=== PATIENT | male | born 1965 | race African-American/Black ===

== ENCOUNTER 2018-11-21 12:56 | Inpatient (IN) | payer OTHER ==
[2018-11-21 14:57] VITALS: BMI 25.1
--- NOTE | 2018-11-21 15:29 | HP ---
CIWA Score Nausea/Vomitin Muscle Tremors: 2 Anxiety: 3 Agitation: 2 Paroxysmal Sweats: 1-Minimal Palms Moist Orientation: 0-Oriented Tacttile Disturbances: 1-Very Mild Itch/Numbness Auditory Disturbances: 1-Very Mild Visual Disturbances: 0-None Headache: 2-Mild CIWA-Ar Total Score: 14 - Admission Criteria OASAS Guidelines: Admission for Medically Managed Detox: Requires at least one of the followin. CIWA greater than 12 2. Seizures within the past 24 hours 3. Delirium tremens within the past 24 hours 4. Hallucinations within the past 24 hours 5. Acute intervention needed for co occurring medical disorder 6. Acute intervention needed for co occurring psychiatric disorder 7. Severe withdrawal that cannot be handled at a lower level of care (continued vomiting, continued diarrhea, abnormal vital signs) requiring intravenous medication and/or fluids 8. Admission ROS S - HPI Chief Complaint: i need help to stop drinking alcohol,cocaine and marijuana Allergies/Adverse Reactions: Allergies Allergy/AdvReac Type Severity Reaction Status Date / Time No Known Allergies Allergy Verified 11/21/18 14:49 History of Present Illness: this 52 years old male with alcohol,cocaine and marijuana dependence seeking detox,withdrawal symptom seen in [place] last night multiple admissions in detox,last detox 2016 [facility] but keep relapsing nicotine dependence 1/2 pack per day,requesting nicotine gum history of schizophrenia and depression history of seizure on dilantin 300 mgs po daily,last medicated 11/10/18 ,laast seizure 3 months ago Exam Limitations: No Limitations - Ebola screening Have you traveled outside of the country in the last 21 days: No Have you had contact with anyone from an Ebola affected area: No - Review of Systems Constitutional: Loss of Appetite, Malaise, Night Sweats, Changes in sleep EENT: reports: Nose Congestion Respiratory: reports: No Symptoms reported Cardiac: reports: No Symptoms Reported GI: reports: Diarrhea, Nausea, Vomiting : reports: No Symptoms Reported Musculoskeletal: reports: Back Pain, Muscle Pain Integumentary: reports: Dryness Neuro: reports: Headache, Tremors Endocrine: reports: No Symptoms Reported Hematology: reports: No Symptoms Reported Psychiatric: reports: No Sypmtoms Reported, Judgement Intact, Mood/Affect Appropiate, Orientated x3 (schizophrenia) Other Systems: Reviewed and Negative Patient History - Patient Medical History Hx Anemia: No Hx Asthma: No Hx Chronic Obstructive Pulmonary Disease (COPD): No Hx Cancer: No Hx Cardiac Disorders: No Hx Congestive Heart Failure: No Hx Hypertension: No Hx Hypercholesterolemia: No Hx Pacemaker: No HX Cerebrovascular Accident: No Hx Seizures: Yes (last 08/15) Hx Dementia: No Hx Diabetes: No Hx Gastrointestinal Disorders: No Hx Liver Disease: No Hx Genitourinary Disorders: No Hx Sexually Transmitted Disorders: No Hx Renal Disease (ESRD): No Hx Thyroid Disease: No Hx Human Immunodeficiency Virus (HIV): No (last 05/14 negative) Hx Hepatitis C: No Hx Depression: Yes Hx Suicide Attempt: No Hx Bipolar Disorder: No Hx Schizophrenia: Yes Other Medical History: no suicidal,no homicidal - Patient Surgical History Past Surgical History: No - PPD History Previous Implant?: Yes Documented Results: Negative w/o proof Implanted On Prior [facility] Admission?: No PPD to be Administered?: Yes - Smoking Cessation Smoking history: Current every day smoker Have you smoked in the past 12 months: Yes Aproximately how many cigarettes per day: 10 Cigars Per Day: 0 Hx Chewing Tobacco Use: No Initiated information on smoking cessation: Yes 'Breaking Loose' booklet given: 11/21/18 - Substance & Tx. History Hx Alcohol Use: Yes Hx Substance Use: Yes Substance Use Type: Alcohol, Cocaine, Marijuana Hx Substance Use Treatment: Yes (2017 at [facility]) - Substances abused Alcohol Substance route: Oral Frequency: Daily Amount used: 3/6packs of 12 ozs Age of first use: 20 Date of last use: 11/20/18 Crack Substance route: Smoking Frequency: Daily Amount used: $30 Age of first use: 34 Date of last use: 11/20/18 Cocaine Substance route: Smoking Frequency: 1-2 times per week Amount used: 30$ Age of first use: 34 Date of last use: 11/20/18 Family Disease History - Family Disease History Family History: Denies Admission Physical Exam S - Vital Signs Vital Signs: Vital Signs - 24 hr 11/21/18 14:49 Temperature 99.3 F Pulse Rate 73 Respiratory 18 Rate Blood Pressure 118/77 - Physical General Appearance: Yes: Moderate Distress, Tremorous, Irritable, Sweating, Anxious HEENTM: Yes: Normal ENT Inspection, Pharynx Normal Respiratory: Yes: Within Normal Limits, Lungs Clear, Normal Breath Sounds Neck: Yes: Within Normal Limits, Supple, Trachea in good position Breast: Yes: Within Normal Limits Cardiology: Yes: Within Normal Limits, Regular Rhythm, Regular Rate, S1, S2 Abdominal: Yes: Within Normal Limits, Normal Bowel Sounds, Non Tender, Flat, Soft Genitourinary: Yes: Within Normal Limits Back: Yes: Muscle Spasm Extremities: Yes: Tremors Neurological: Yes: legal executive assistant II-XII NML intact, Fully Oriented, Alert, Motor Strength 5/5 Integumentary: Yes: Dry Lymphatic: Yes: Within Normal Limits - Diagnostic (1) Alcohol dependence with uncomplicated withdrawal Current Visit: Yes Status: Acute (2) Cannabis dependence Current Visit: Yes Status: Acute (3) Cocaine abuse Current Visit: Yes Status: Acute (4) Seizure Current Visit: Yes Status: Acute (5) Syncope Current Visit: Yes Status: Acute (6) Schizophrenia Current Visit: Yes Status: Acute (7) Depression Current Visit: Yes Status: Acute Cleared for Admission S - Detox or Rehab [facility] Level of Care: Medically Managed Detox Regimen/Protocol: Librium Breathalyzer - Breathalyzer Breathalyzer: 0 Urine Drug Screen - Test Device Lot number: [id number] Expiration date: 06/26/20 - Control Is test valid?: Yes - Results Drug screen NEGATIVE: No Urine drug screen results: THC-Marijuana, VIVIAN-Cocaine, BAR-Barbiturates Inpatient Rehab Admission - Rehab Decision to Admit Inpatient rehab admission?: No
[2018-11-21] MEDS ORDERED: chlordiazePOXIDE HCL 25 MG CAPSULE PO PRN (15:40)
[2018-11-21] MEDS ORDERED: METHOCARBAMOL 500 MG TABLET PO PRN (15:40)
[2018-11-21] MEDS ORDERED: NICOTINE POLACRILEX 2 MG GUM BUC PRN (15:40)
[2018-11-21] MEDS ORDERED: IBUPROFEN 400 MG TABLET (FP) PO PRN (15:40)
[2018-11-21] MEDS ORDERED: MENTHOL/PHENOL 1 EACH UD MM PRN (15:40)
[2018-11-21] MEDS ORDERED: ACETAMINOPHEN 325 MG TABLET (FP) PO PRN ×2 (15:40)
[2018-11-21] MEDS ORDERED: MELATONIN 5 MG TABLETS PO PRN (15:40)
[2018-11-21] MEDS ORDERED: BISMUTH SUBSALICYLATE 524 MG/30 ML UD PO PRN (15:40)
[2018-11-21] MEDS ORDERED: hydrOXYzine PAMOATE 25 MG CAPSULE (FP) PO PRN (15:40)
[2018-11-21] MEDS ORDERED: MAG HYDROX/AL HYDROX/SIMETH 30 ML UNIT-DOSE CUP PO PRN (15:40)
[2018-11-21] MEDS ORDERED: MAGNESIUM CITRATE 300 ML BOTTLE PO PRN (15:40)
[2018-11-21] MEDS ORDERED: MAGNESIUM HYDROX 2400MG/30ML ORAL SUSPENSION 30 ML CUP PO PRN (15:40)
[2018-11-21] MEDS: PHENYTOIN NA EXTENDED 100 MG CAPSULE (FP) PO SCH (18:42)
[2018-11-21] MEDS: THIAMINE HCL 100 MG TABLET (FP) PO SCH (22:22)
[2018-11-21] MEDS: chlordiazePOXIDE HCL 25 MG CAPSULE PO SCH (22:22)
[2018-11-22] MEDS: chlordiazePOXIDE HCL 25 MG CAPSULE PO SCH ×4 (05:40→22:03)
[2018-11-22] MEDS: PRENATAL VITAMINS W/ FOLIC ACID TABLET (FP) PO SCH (10:22)
[2018-11-22] MEDS: PHENYTOIN NA EXTENDED 100 MG CAPSULE (FP) PO SCH (10:22)
[2018-11-22 10:45] LABS: HEMATOCRIT 41.6 % (35.4-49); HEMOGLOBIN 13.6 GM/dL (11.7-16.9); MCH 29.7 pg (25.7-33.7); MCHC 32.7 g/dl (32.0-35.9); MEAN CELL VOLUME 90.7 fl (80-96); MEAN PLT VOLUME 10.3 fl (7.5-11.1); PLATELET COUNT 111 K/MM3 (134-434); RBC 4.58 M/mm3 (4.00-5.60); RDW 13.7 % (11.9-15.9); WHITE BLOOD COUNT 2.8 K/mm3 (4.0-10.0)
[2018-11-22 11:04] LABS: ALBUMIN 3.4 g/dl (3.4-5.0); ALK PHOS 114 U/L (45-117); ANION GAP 6 MMOL/L (8-16); BILIRUBIN,TOTAL 0.6 mg/dL (0.2-1); BLOOD UREA NITROGEN 8 mg/dL (7-18); CALCIUM 8.7 mg/dL (8.5-10.1); CHLORIDE 105 mmol/L (98-107); CO2 29 mmol/L (21-32); CREATININE 0.8 mg/dL (0.55-1.3); GLUCOSE,RANDOM 88 mg/dL (74-106); POTASSIUM 3.8 mmol/L (3.5-5.1); SGOT/AST 58 U/L (15-37); SGPT/ALT 61 U/L (13-61); SODIUM 140 mmol/L (136-145); TOT PROT 7.3 g/dl (6.4-8.2)
--- NOTE | 2018-11-22 11:50 | CONSULT ---
[facility] Consult - Data Date of interview: 11/22/18 Admission source: [facility] as a tranfer from [facility] Identifying data: Patient is a 52 y/o male father of one unemployed, homeless, has no support system Substance Abuse History: Patient had a prior Detox treatment @ [facility] 4 years ago which has been succssful. He has been doing well until he relapsed 2 weeks ago drinking alcohol daily, smoking cocaine and marijuana. He smokes cigarettes one pack /day. Triggering factors, job loss, family conflict , he used to reside with his sister. He has been drinking daily and using cocaine. Medical History: History of seizure disorder controlled with Dilantin. Last seizure episode 2 month ago Psychiatric History: Patient reported 4 prior psychiatric hospitalizations @ [facility] and [facility], his most recent psych hospitalization was @ [facility] 2 years ago, he has not been compliant with his after care treatment. Currently feels sad, and anxious. Past medicated with Risperdal and another medication( could not recall the name ). he denies psychosis, suicidal or homicidal ideation, denies ansiety, feels mildly depressed , no insomnia. Physical/Sexual Abuse/Trauma History: denied Mental Status Exam - Mental Status Exam Alert and Oriented to: Place, Person Cognitive Function: Good Patient Appearance: Unkempt Mood: Euthymic Affect: Appropriate Patient Behavior: Appropriate, Cooperative Speech Pattern: Clear Voice Loudness: Normal Thought Process: Intact Thought Disorder: Not Present Hallucinations: Denies Suicidal Ideation: Denies Homicidal Ideation: Denies Insight/Judgement: Poor Sleep: Well Appetite: Good Muscle strength/Tone: Normal Gait/Station: Normal Psychiatric Findings - Problem List ([place] 1, 2,3) (1) Schizoaffective disorder with good prognostic features Current Visit: Yes Status: Acute (2) Alcohol dependence with uncomplicated withdrawal Current Visit: Yes Status: Acute (3) Cannabis dependence Current Visit: Yes Status: Acute (4) Cocaine abuse Current Visit: Yes Status: Acute (5) Seizure Current Visit: Yes Status: Acute - Initial Treatment Plan Initial Treatment Plan: Continue detox treatment. Monitor response
--- NOTE | 2018-11-22 13:30 | PN ---
[facility] CIWA - CIWA Score Nausea/Vomitin-Mild Nausea/No Vomiting Muscle Tremors: 2 Anxiety: 2 Agitation: 2 Paroxysmal Sweats: 1-Minimal Palms Moist Orientation: 2-Disoriented Date<2 days Tacttile Disturbances: 0-None Auditory Disturbances: 0-None Visual Disturbances: 0-None Headache: 1-Very Mild CIWA-Ar Total Score: 11 S Progress Note (SOAP) Subjective: doing well with librium detox regimen feeling better today than yesterday Objective: 11/22/18 13:32 Vital Signs Temperature 97.0 F L 11/22/18 09:33 Pulse Rate 82 11/22/18 09:33 Respiratory Rate 18 11/22/18 09:33 Blood Pressure 125/73 11/22/18 09:33 O2 Sat by Pulse Oximetry (%) Laboratory Last Values WBC 2.8 K/mm3 (4.0-10.0) L 11/22/18 07:00 RBC 4.58 M/mm3 (4.00-5.60) 11/22/18 07:00 Hgb 13.6 GM/dL (11.7-16.9) 11/22/18 07:00 Hct 41.6 % (35.4-49) 11/22/18 07:00 MCV 90.7 fl (80-96) 11/22/18 07:00 MCH 29.7 pg (25.7-33.7) 11/22/18 07:00 MCHC 32.7 g/dl (32.0-35.9) 11/22/18 07:00 RDW 13.7 % (11.9-15.9) 11/22/18 07:00 Plt Count 111 K/MM3 (134-434) L 11/22/18 07:00 MPV 10.3 fl (7.5-11.1) 11/22/18 07:00 Sodium 140 mmol/L (136-145) 11/22/18 07:00 Potassium 3.8 mmol/L (3.5-5.1) 11/22/18 07:00 Chloride 105 mmol/L (98-107) 11/22/18 07:00 Carbon Dioxide 29 mmol/L (21-32) 11/22/18 07:00 Anion Gap 6 MMOL/L (8-16) L 11/22/18 07:00 BUN 8 mg/dL (7-18) 11/22/18 07:00 Creatinine 0.8 mg/dL (0.55-1.3) 11/22/18 07:00 Creat Clearance w eGFR 102.32 (>60) 11/22/18 07:00 Random Glucose 88 mg/dL (74-106) 11/22/18 07:00 Calcium 8.7 mg/dL (8.5-10.1) 11/22/18 07:00 Total Bilirubin 0.6 mg/dL (0.2-1) 11/22/18 07:00 AST 58 U/L (15-37) H 11/22/18 07:00 ALT 61 U/L (13-61) 11/22/18 07:00 Alkaline Phosphatase 114 U/L (45-117) 11/22/18 07:00 Total Protein 7.3 g/dl (6.4-8.2) 11/22/18 07:00 Albumin 3.4 g/dl (3.4-5.0) 11/22/18 07:00 Phenytoin 5.4 ug/ml (10.0-20.0) L 11/22/18 07:00 RPR Titer Nonreactive (NONREACTIVE) 11/22/18 07:00 HIV 1&2 Antibody Screen Negative 11/22/18 07:00 HIV P24 Antigen Negative 11/22/18 07:00 lab noted dilantin loading dose 600 mg x 1 11/22/18 13:33 Assessment: 11/22/18 13:34 alcohol withdrawal sx seizure Plan: continue alcohol detox 600 mg dilantin x 1
[2018-11-22] MEDS ORDERED: PHENYTOIN NA EXTENDED 100 MG CAPSULE (FP) PO ONE (13:35)
[2018-11-22] MEDS: THIAMINE HCL 100 MG TABLET (FP) PO SCH (22:03)
[2018-11-23] MEDS: chlordiazePOXIDE HCL 25 MG CAPSULE PO SCH ×3 (05:17→16:57)
[2018-11-23] MEDS: PRENATAL VITAMINS W/ FOLIC ACID TABLET (FP) PO SCH (10:13)
[2018-11-23] MEDS: PHENYTOIN NA EXTENDED 100 MG CAPSULE (FP) PO SCH (10:14)
--- NOTE | 2018-11-23 11:02 | EKG ---
Test Reason : Blood Pressure : / mmHG Vent. Rate : 068 BPM Atrial Rate : 068 BPM P-R Int : 164 ms QRS Dur : 082 ms QT Int : 442 ms P-R-T Axes : 077 -43 053 degrees QTc Int : 469 ms NORMAL SINUS RHYTHM LEFT AXIS DEVIATION SEPTAL INFARCT , AGE UNDETERMINED ABNORMAL ECG NO PREVIOUS ECGS AVAILABLE Confirmed by ROMA QUINTERO MD ([id number]) on 11/23/2018 11:01:52 AM Referred By: Confirmed By:ROMA QUINTERO MD
--- NOTE | 2018-11-23 12:18 | PN ---
[facility] CIWA - CIWA Score Nausea/Vomitin-Mild Nausea/No Vomiting Muscle Tremors: 2 Anxiety: 2 Agitation: 2 Paroxysmal Sweats: 1-Minimal Palms Moist Orientation: 0-Oriented Tacttile Disturbances: 0-None Auditory Disturbances: 0-None Visual Disturbances: 0-None Headache: 0-None Present CIWA-Ar Total Score: 8 S Progress Note (SOAP) Subjective: doing well with librium detox regimen ambulate on hallway social with peers Objective: 11/23/18 12:19 Vital Signs Temperature 97.2 F L 11/23/18 09:08 Pulse Rate 78 11/23/18 09:08 Respiratory Rate 18 11/23/18 09:08 Blood Pressure 122/87 11/23/18 09:08 O2 Sat by Pulse Oximetry (%) Laboratory Last Values WBC 2.8 K/mm3 (4.0-10.0) L 11/22/18 07:00 RBC 4.58 M/mm3 (4.00-5.60) 11/22/18 07:00 Hgb 13.6 GM/dL (11.7-16.9) 11/22/18 07:00 Hct 41.6 % (35.4-49) 11/22/18 07:00 MCV 90.7 fl (80-96) 11/22/18 07:00 MCH 29.7 pg (25.7-33.7) 11/22/18 07:00 MCHC 32.7 g/dl (32.0-35.9) 11/22/18 07:00 RDW 13.7 % (11.9-15.9) 11/22/18 07:00 Plt Count 111 K/MM3 (134-434) L 11/22/18 07:00 MPV 10.3 fl (7.5-11.1) 11/22/18 07:00 Sodium 140 mmol/L (136-145) 11/22/18 07:00 Potassium 3.8 mmol/L (3.5-5.1) 11/22/18 07:00 Chloride 105 mmol/L (98-107) 11/22/18 07:00 Carbon Dioxide 29 mmol/L (21-32) 11/22/18 07:00 Anion Gap 6 MMOL/L (8-16) L 11/22/18 07:00 BUN 8 mg/dL (7-18) 11/22/18 07:00 Creatinine 0.8 mg/dL (0.55-1.3) 11/22/18 07:00 Creat Clearance w eGFR 102.32 (>60) 11/22/18 07:00 Random Glucose 88 mg/dL (74-106) 11/22/18 07:00 Calcium 8.7 mg/dL (8.5-10.1) 11/22/18 07:00 Total Bilirubin 0.6 mg/dL (0.2-1) 11/22/18 07:00 AST 58 U/L (15-37) H 11/22/18 07:00 ALT 61 U/L (13-61) 11/22/18 07:00 Alkaline Phosphatase 114 U/L (45-117) 11/22/18 07:00 Total Protein 7.3 g/dl (6.4-8.2) 11/22/18 07:00 Albumin 3.4 g/dl (3.4-5.0) 11/22/18 07:00 Phenytoin 5.4 ug/ml (10.0-20.0) L 11/22/18 07:00 RPR Titer Nonreactive (NONREACTIVE) 11/22/18 07:00 HIV 1&2 Antibody Screen Negative 11/22/18 07:00 HIV P24 Antigen Negative 11/22/18 07:00 repeat cbc lab noted 11/23/18 12:21 Assessment: 11/23/18 12:21 withdrawal sx Plan: continue detox
[2018-11-23] MEDS: chlordiazePOXIDE HCL 10 MG CAPSULE PO SCH (22:36)
[2018-11-23] MEDS: THIAMINE HCL 100 MG TABLET (FP) PO SCH (22:36)
[2018-11-23] MEDS ORDERED: chlordiazePOXIDE HCL 10 MG CAPSULE PO PRN (23:00)
[2018-11-24] MEDS: chlordiazePOXIDE HCL 10 MG CAPSULE PO SCH ×2 (06:21→12:00)
[2018-11-24 06:26] VITALS: TEMP 96.6
[2018-11-24 09:18] VITALS: BP 142/94; PULSE 80
--- NOTE | 2018-11-24 09:21 | DS ---
[facility] Detox Discharge Summary Admission Date: 11/21/18 Discharge Date: 11/24/18 - History Present History: Alcohol Dependence Additional Comments: 53 years old male admitted on 11/21/18 for alcohol withdrawal stabilization feeling better today wants to go home to see his daughter and grand[place] came here to see him patient is alert no acute distress denies suicidal ideation aftercare "I have to go back to work" patient has supportive sister at home care for him encourage him not to drink Pertinent Past History: bring in medication list and lab report to aftercare appointment strong recommend the patient return to neurologist or primary care provider for dilantin level monitoring - Physical Exam Results Vital Signs: Vital Signs Temperature 96.6 F L 11/24/18 09:17 Pulse Rate 80 11/24/18 09:17 Respiratory Rate 20 11/24/18 09:17 Blood Pressure 142/94 11/24/18 09:17 O2 Sat by Pulse Oximetry (%) Pertinent Admission Physical Exam Findings: alcohol withdrawal sx Laboratory Last Values WBC 2.8 K/mm3 (4.0-10.0) L 11/24/18 07:00 RBC 4.40 M/mm3 (4.00-5.60) 11/24/18 07:00 Hgb 12.8 GM/dL (11.7-16.9) 11/24/18 07:00 Hct 39.7 % (35.4-49) 11/24/18 07:00 MCV 90.2 fl (80-96) 11/24/18 07:00 MCH 29.1 pg (25.7-33.7) 11/24/18 07:00 MCHC 32.2 g/dl (32.0-35.9) 11/24/18 07:00 RDW 13.7 % (11.9-15.9) 11/24/18 07:00 Plt Count 104 K/MM3 (134-434) L 11/24/18 07:00 MPV 10.2 fl (7.5-11.1) 11/24/18 07:00 Sodium 140 mmol/L (136-145) 11/22/18 07:00 Potassium 3.8 mmol/L (3.5-5.1) 11/22/18 07:00 Chloride 105 mmol/L (98-107) 11/22/18 07:00 Carbon Dioxide 29 mmol/L (21-32) 11/22/18 07:00 Anion Gap 6 MMOL/L (8-16) L 11/22/18 07:00 BUN 8 mg/dL (7-18) 11/22/18 07:00 Creatinine 0.8 mg/dL (0.55-1.3) 11/22/18 07:00 Creat Clearance w eGFR 102.32 (>60) 11/22/18 07:00 Random Glucose 88 mg/dL (74-106) 11/22/18 07:00 Calcium 8.7 mg/dL (8.5-10.1) 11/22/18 07:00 Total Bilirubin 0.6 mg/dL (0.2-1) 11/22/18 07:00 AST 58 U/L (15-37) H 11/22/18 07:00 ALT 61 U/L (13-61) 11/22/18 07:00 Alkaline Phosphatase 114 U/L (45-117) 11/22/18 07:00 Total Protein 7.3 g/dl (6.4-8.2) 11/22/18 07:00 Albumin 3.4 g/dl (3.4-5.0) 11/22/18 07:00 Phenytoin 12.3 ug/ml (10.0-20.0) 11/23/18 08:20 RPR Titer Nonreactive (NONREACTIVE) 11/22/18 07:00 HIV 1&2 Antibody Screen Negative 11/22/18 07:00 HIV P24 Antigen Negative 11/22/18 07:00 lab noted - Treatment Hospital Course: Detox Protocol Followed, Detoxed Safely, Responded well, Discharged Condition Good, Rehab Referral Accepted Patient has Accepted a Rehab Referral to: [facility] - Medication Discharge Medications: Ambulatory Orders Phenytoin Na Extended [Dilantin -] 100 mg PO TID #90 capsule 11/24/18 - Diagnosis (1) Alcohol dependence with uncomplicated withdrawal Status: Acute (2) Seizure Status: Chronic - AMA Did Patient Leave Against Medical Advice: No
[2018-11-24 09:57] LABS: HEMATOCRIT 39.7 % (35.4-49); HEMOGLOBIN 12.8 GM/dL (11.7-16.9); MCH 29.1 pg (25.7-33.7); MCHC 32.2 g/dl (32.0-35.9); MEAN CELL VOLUME 90.2 fl (80-96); MEAN PLT VOLUME 10.2 fl (7.5-11.1); PLATELET COUNT 104 K/MM3 (134-434); RDW 13.7 % (11.9-15.9); WHITE BLOOD COUNT 2.8 K/mm3 (4.0-10.0)
[2018-11-24] MEDS: PHENYTOIN NA EXTENDED 100 MG CAPSULE (FP) PO SCH (11:03)
[2018-11-24] MEDS: PRENATAL VITAMINS W/ FOLIC ACID TABLET (FP) PO SCH (11:03)
[2018-11-24] MEDS ORDERED: chlordiazePOXIDE HCL 10 MG CAPSULE PO SCH (23:00)
== END 2018-11-24 09:42 | disposition home or self-care (01) | DRG 774 ==
LOC: YASAS 12:56 → Y3N 16:49
PROVIDERS: ADMIT Surgery; ATTEND Surgery
PROC: HZ2ZZZZ Detoxification Services for Substance Abuse Treatment (ICD-10-PCS; principal; 2018-11-21)
DX: F10.230 Alcohol dependence with withdrawal, uncomplicated (principal); F14.20 Cocaine dependence, uncomplicated; F12.20 Cannabis dependence, uncomplicated; F25.9 Schizoaffective disorder, unspecified; F32.9 Major depressive disorder, single episode, unspecified; G40.909 Epilepsy, unspecified, not intractable, without status epilepticus
CPT/HCPCS: 36415; 80053; 80185; 85027; 86593; 87389; 93005; 93010

== ENCOUNTER 2019-01-07 12:24 | Inpatient (IN) | payer OTHER ==
[2019-01-07 19:36] VITALS: BMI 23.0
--- NOTE | 2019-01-07 20:22 | HP ---
"CIWA Score - Admission Criteria OASAS Guidelines: Admission for Medically Managed Detox: Requires at least one of the followin. CIWA greater than 12 2. Seizures within the past 24 hours 3. Delirium tremens within the past 24 hours 4. Hallucinations within the past 24 hours 5. Acute intervention needed for co occurring medical disorder 6. Acute intervention needed for co occurring psychiatric disorder 7. Severe withdrawal that cannot be handled at a lower level of care (continued vomiting, continued diarrhea, abnormal vital signs) requiring intravenous medication and/or fluids 8. Admission ROS [facility] Chief Complaint: Here for help. Allergies/Adverse Reactions: Allergies Allergy/AdvReac Type Severity Reaction Status Date / Time No Known Allergies Allergy Verified 01/07/19 19:23 History of Present Illness: 53 yom w/ hx alcohol use since age 21. Was using up to two - 16oz 6pks beer daily. Stopped use 3 weeks ago when began attending an out-patient program. Patient states relapsed yesterday (01/06). Was seen in [facility] over night and treated for alcohol intoxication on 01/06/13 and transferred to [facility] today. Based on patient's current history, will admit to rehab. Alcohol use since age 20. Cocaine use since age 34. Nicotine use since age 21. Smokes 2-3 cig/day PMHx: Seizure on Dilantin 300 mgs PO daily (Received at [facility]); EKG 11/21/18: NSR w/ Septal infarct undetermined age. States was having (R) sided chest pain 2 weeks unrelated to activity (was laying down) MHHx: Schizophrenia and Depression. Denies thoughts of harming self or others. ( States takes Lexapro and Resperidal - last took abpout 1 week ago) Search Terms: Angelina Hamm, 1965 Search Date: 01/07/2019 08:16:51 PM The Drug Utilization Report below displays all of the controlled substance prescriptions, if any, that your patient has filled in the last twelve months. The information displayed on this report is compiled from pharmacy submissions to the Department, and accurately reflects the information as submitted by the pharmacies. This report was requested by: Rosette Estrada | Reference #: [id number] There are no results for the search terms that you entered. Search Terms: Angelina Hamm, 1965 Search Date: 01/07/2019 08:28:54 PM States Searched: [place], [place], [place], [place], [place], [place], [place] The Drug Utilization Report below displays the controlled substance prescriptions, if any, that were dispensed in the indicated state(s). The information displayed on this report is compiled from requests submitted to other states' PMPs, and accurately reflects the information as returned by them. Blank lewis indicate data not provided by other state. This report was requested by: Rosette Estrada | Reference #: [id number] Exam Limitations: No Limitations - Ebola screening Have you traveled outside of the country in the last 21 days: No (N) Have you had contact with anyone from an Ebola affected area: No Have you been sick,other than usual withdrawal symptoms: No (Denies recent exposure to measles.) Do you have a fever: No - Review of Systems Constitutional: Changes in sleep (Difficulty falling asleep.) EENT: reports: No Symptoms Reported Respiratory: reports: No Symptoms reported Cardiac: reports: No Symptoms Reported GI: reports: No Symptoms Reported : reports: No Symptoms Reported Musculoskeletal: reports: Back Pain (Chronic back pain r/t recent fall.) Integumentary: reports: No Symptoms Reported Neuro: reports: Seizure (Last seizure 6 months ago.) Endocrine: reports: No Symptoms Reported Hematology: reports: No Symptoms Reported Psychiatric: reports: Judgement Intact, Mood/Affect Appropiate, Orientated x3, Anxious, Depressed Patient History - Patient Medical History Hx Anemia: No Hx Asthma: No Hx Chronic Obstructive Pulmonary Disease (COPD): No Hx Cancer: No Hx Cardiac Disorders: No Hx Congestive Heart Failure: No Hx Hypertension: No Hx Hypercholesterolemia: No Hx Pacemaker: No HX Cerebrovascular Accident: No Hx Seizures: Yes (last 08/15) Hx Dementia: No Hx Diabetes: No Hx Gastrointestinal Disorders: No Hx Liver Disease: No Hx Genitourinary Disorders: No Hx Sexually Transmitted Disorders: No Hx Renal Disease (ESRD): No Hx Thyroid Disease: No Hx Human Immunodeficiency Virus (HIV): No (last 05/14 negative) Hx Hepatitis C: No Hx Depression: Yes Hx Suicide Attempt: No Hx Bipolar Disorder: No Hx Schizophrenia: Yes - Patient Surgical History Past Surgical History: No - PPD History Previous Implant?: Yes Documented Results: Negative w/proof Implanted On Prior [facility] Admission?: Yes Date: 11/23/18 PPD to be Administered?: No - Smoking Cessation Smoking history: Current every day smoker Have you smoked in the past 12 months: Yes Aproximately how many cigarettes per day: 3 Cigars Per Day: 0 Hx Chewing Tobacco Use: No Initiated information on smoking cessation: Yes 'Breaking Loose' booklet given: 01/07/19 - Substance & Tx. History Hx Alcohol Use: Yes Substance Use Type: Alcohol, Cocaine Hx Substance Use Treatment: Yes (detox, rehab) - Substances abused Alcohol Substance route: Oral Frequency: 3-6 times per week Amount used: 2- 6packs of 12 ozs Age of first use: 20 Date of last use: 01/06/19 Crack Substance route: Smoking Frequency: Daily Amount used: $20 Age of first use: 34 Date of last use: 01/06/19 Cocaine Substance route: Smoking Frequency: 1-2 times per week Amount used: 30$ Age of first use: 34 Date of last use: 11/20/18 Admission Physical Exam [facility] - Vital Signs Vital Signs: Vital Signs - 24 hr 01/07/19 19:16 Temperature 99.0 F Pulse Rate 63 Respiratory 18 Rate Blood Pressure 137/79 - Physical General Appearance: Yes: Nourished, Anxious HEENTM: Yes: EOMI, Hearing grossly Normal, Normocephalic, Normal Voice, FELIPE, Pharynx Normal Respiratory: Yes: Lungs Clear, Normal Breath Sounds, No Respiratory Distress Neck: Yes: No masses,lesions,Nodules, Supple Breast: Yes: Breast Exam Deferred Cardiology: Yes: Regular Rhythm, Regular Rate (HR: 60), S1, S2 Abdominal: Yes: Non Tender, Flat, Soft, Increased Bowel Sounds Genitourinary: Yes: Within Normal Limits Back: Yes: Normal Inspection Musculoskeletal: Yes: full range of Motion, Gait Steady Extremities: Yes: Normal Capillary Refill, Normal Range of Motion, Non-Tender Neurological: Yes: program aide II-XII NML intact, Fully Oriented, Alert, Motor Strength 5/5, Normal Mood/Affect Integumentary: Yes: Normal Color, Dry (Decreased skin turgor), Warm Lymphatic: Yes: Within Normal Limits - Diagnostic (1) History of seizures Current Visit: Yes Status: Chronic (2) Alcohol use disorder, moderate, in early remission Current Visit: Yes Status: Acute (3) Cocaine use disorder, moderate, in early remission Current Visit: Yes Status: Acute (4) Nicotine abuse Current Visit: Yes Status: Chronic Cleared for Admission [facility] - Detox or Rehab Claeared for Rehab Admission: Yes Breathalyzer - Breathalyzer Breathalyzer: 0 Urine Drug Screen - Test Device Lot number: [id number] Expiration date: 09/24/20 - Control Is test valid?: Yes - Results Drug screen NEGATIVE: No Urine drug screen results: BAR-Barbiturates Inpatient Rehab Admission - Rehab Decision to Admit Inpatient rehab admission?: Yes - Initial Determination Are CD services needed?: Yes Free of communicable disease: Yes Not in need of hospitalization: Yes - Rehab Admission Criteria Previous failed treatment: Yes Poor recovery environment: Yes Comorbidities: Yes Lacks judgement: No Patient is meeting Inpatient Rehab admission criteria:: Yes"
[2019-01-07] MEDS ORDERED: MAGNESIUM CITRATE 300 ML BOTTLE PO PRN (20:51)
[2019-01-07] MEDS ORDERED: hydrOXYzine PAMOATE 50 MG CAPSULE (FP) PO PRN (20:51)
[2019-01-07] MEDS ORDERED: guaiFENesin 200 MG/10 ML 10 ML UNIT-DOSE CUPS PO PRN (20:51)
[2019-01-07] MEDS ORDERED: LOPERAMIDE HCL 2 MG CAPSULE PO PRN (20:51)
[2019-01-07] MEDS ORDERED: MAG HYDROX/AL HYDROX/SIMETH 30 ML UNIT-DOSE CUP PO PRN (20:51)
[2019-01-07] MEDS ORDERED: IBUPROFEN 400 MG TABLET (FP) PO PRN (20:51)
[2019-01-07] MEDS ORDERED: MENTHOL/PHENOL 1 EACH UD MM PRN (20:51)
[2019-01-07] MEDS ORDERED: P-EPHED 60MG/TRIPROLIDI 2.5MG TABLET PO PRN (20:51)
[2019-01-07] MEDS ORDERED: MAGNESIUM HYDROX 2400MG/30ML ORAL SUSPENSION 30 ML CUP PO PRN (20:51)
[2019-01-07] MEDS ORDERED: ACETAMINOPHEN 325 MG TABLET (FP) PO PRN (20:51)
[2019-01-07] MEDS: MELATONIN 5 MG TABLETS PO PRN (22:16)
[2019-01-07] MEDS: PHENYTOIN NA EXTENDED 100 MG CAPSULE (FP) PO SCH (22:16)
[2019-01-07] MEDS: THIAMINE HCL 100 MG TABLET (FP) PO SCH (22:16)
[2019-01-08] MEDS: PHENYTOIN NA EXTENDED 100 MG CAPSULE (FP) PO SCH ×3 (06:18→21:21)
--- NOTE | 2019-01-08 08:47 | CONSULT ---
[facility] Psychiatric Consult - Data Date of interview: 01/08/19 Admission source: [facility] Identifying data: Mr Hamm is a 53 years old single male, father of 2 daughters , unemployed receiving food stamp, homeless seeking rehab treatment for alcohol and cocaine Substance Abuse History: Reports history of alcohol and crack cocaine use. Refer to addiction counselor's summary for further information Medical History: Significant for seizure disorder and septal infarc on EKG. Smokes 3 cigarettes daily Psychiatric History: Patient is a poor and unreliable historian. He is unsure about onset of his mental illness. He initially told script writer that his first psychiatric contact was 5 years ago when he was admitted to [facility] for hearing voices. Then when asked if he ever attempted on his life, he responded that he tried to kill himself by overdose on pills 8 years ago and he was admitted to [facility]. Reports subsequent hospitalizations at [facility] and [facility]. He told script writer that his most recent admission was to [facility] 4 years ago. However when seen by Dr Hunter on 11/22/18 , he reported that his most recent admission was in 2017 to [facility]. Reports currently receiving outpatient psychiatric treatment at [facility] and he is prescribed Risperdal 2 mg/day and Lexapro 10 mg/day. At present, denies experiencing psychotic symptoms, S/H ideations. However, reports feeling mildly depressed and sleeping poorly. Physical/Sexual Abuse/Trauma History: Denies history of emotional, physical or sexual abuse as well as DV relationship. No miltary service Additional Comment: Reports history of 4 previous misdemeanor arrests. Denies being on probation at present Mental Status Exam - Mental Status Exam Alert and Oriented to: Time, Place, Person Cognitive Function: Fair Mood: Depressed (mildly) Affect: Appropriate Patient Behavior: Cooperative Speech Pattern: Clear Voice Loudness: Normal Thought Process: Intact Thought Disorder: Present Hallucinations: Denies Suicidal Ideation: Denies Homicidal Ideation: Denies Insight/Judgement: Fair Sleep: Poorly Appetite: Good Muscle strength/Tone: Normal Gait/Station: Normal Psychiatric Findings - Problem List ([place] 1, 2,3) (1) Schizophrenia Current Visit: No Status: Chronic (2) Substance induced mood disorder Current Visit: Yes Status: Acute (3) Substance-induced sleep disorder Current Visit: Yes Status: Acute (4) Alcohol dependence Current Visit: Yes Status: Acute (5) Cocaine dependence Current Visit: Yes Status: Acute (6) Nicotine dependence Current Visit: Yes Status: Chronic (7) History of seizures Current Visit: Yes Status: Chronic - Initial Treatment Plan Initial Treatment Plan: 1) Continue Risperdal 2 mg po daily and Lexapro 10 mg po daily. 2) Continue inpatient rehabilitation
[2019-01-08] MEDS: PRENATAL VITAMINS W/ FOLIC ACID TABLET (FP) PO SCH (10:02)
--- NOTE | 2019-01-08 10:55 | EKG ---
Test Reason : Blood Pressure : / mmHG Vent. Rate : 056 BPM Atrial Rate : 056 BPM P-R Int : 176 ms QRS Dur : 086 ms QT Int : 408 ms P-R-T Axes : 071 -27 042 degrees QTc Int : 393 ms SINUS BRADYCARDIA VOLTAGE CRITERIA FOR LEFT VENTRICULAR HYPERTROPHY EARLY REPOLARIZATION Confirmed by MAGALY SILVERIO MD ([id number]) on 01/08/2019 10:55:09 AM Referred By: Kristi Marie Confirmed By:MAGALY SILVERIO MD
[2019-01-08] MEDS: ESCITALOPRAM OXALATE 10 MG TABLET (FP) PO SCH (11:30)
[2019-01-08] MEDS: risperiDONE 2 MG TABLET PO SCH (11:30)
[2019-01-08 12:32] LABS: HEMATOCRIT 41.1 % (35.4-49); HEMOGLOBIN 13.4 GM/dL (11.7-16.9); MCH 29.5 pg (25.7-33.7); MCHC 32.5 g/dl (32.0-35.9); MEAN PLT VOLUME 10.2 fl (7.5-11.1); PLATELET COUNT 171 K/MM3 (134-434); RBC 4.52 M/mm3 (4.00-5.60); RDW 13.9 % (11.9-15.9); WHITE BLOOD COUNT 3.8 K/mm3 (4.0-10.0)
[2019-01-08 12:40] LABS: ALBUMIN 3.6 g/dl (3.4-5.0); BILIRUBIN,TOTAL 0.5 mg/dL (0.2-1); BLOOD UREA NITROGEN 7.4 mg/dL (7-18); CALCIUM 9.3 mg/dL (8.5-10.1); POTASSIUM 3.9 mmol/L (3.5-5.1); TOT PROT 7.4 g/dl (6.4-8.2)
[2019-01-08 18:52] LABS: PH,URINE 8.5 (5.0-8.0); URINE APPEARANCE CLEAR; URINE BILIRUBIN NEGATIVE (NEGATIVE); URINE COLOR YELLOW; URINE GLUCOSE (UA) NEGATIVE (NEGATIVE); URINE KETONE NEGATIVE (NEGATIVE); URINE LEUK ESTERASE NEGATIVE (NEGATIVE); URINE NITRITE NEGATIVE (NEGATIVE); URINE PROTEIN NEGATIVE (NEGATIVE); URINE UROBILINOGEN 0.2 mg/dL (0.2-1.0)
[2019-01-08] MEDS: THIAMINE HCL 100 MG TABLET (FP) PO SCH (21:21)
[2019-01-08] MEDS: MELATONIN 5 MG TABLETS PO PRN (21:21)
[2019-01-09] MEDS: PHENYTOIN NA EXTENDED 100 MG CAPSULE (FP) PO SCH ×3 (07:42→21:23)
[2019-01-09] MEDS: risperiDONE 2 MG TABLET PO SCH (09:52)
[2019-01-09] MEDS: PRENATAL VITAMINS W/ FOLIC ACID TABLET (FP) PO SCH (09:53)
[2019-01-09] MEDS: ESCITALOPRAM OXALATE 10 MG TABLET (FP) PO SCH (09:53)
[2019-01-09] MEDS: MELATONIN 5 MG TABLETS PO PRN (21:23)
[2019-01-09] MEDS: THIAMINE HCL 100 MG TABLET (FP) PO SCH (21:23)
[2019-01-10] MEDS: PHENYTOIN NA EXTENDED 100 MG CAPSULE (FP) PO SCH ×3 (06:29→21:25)
[2019-01-10] MEDS: PRENATAL VITAMINS W/ FOLIC ACID TABLET (FP) PO SCH (10:13)
[2019-01-10] MEDS: risperiDONE 2 MG TABLET PO SCH (10:13)
[2019-01-10] MEDS: ESCITALOPRAM OXALATE 10 MG TABLET (FP) PO SCH (10:13)
[2019-01-10] MEDS: THIAMINE HCL 100 MG TABLET (FP) PO SCH (21:25)
[2019-01-10] MEDS: MELATONIN 5 MG TABLETS PO PRN (21:26)
[2019-01-11] MEDS: PHENYTOIN NA EXTENDED 100 MG CAPSULE (FP) PO SCH ×3 (06:29→21:10)
[2019-01-11] MEDS: risperiDONE 2 MG TABLET PO SCH (10:29)
[2019-01-11] MEDS: ESCITALOPRAM OXALATE 10 MG TABLET (FP) PO SCH (10:29)
[2019-01-11] MEDS: PRENATAL VITAMINS W/ FOLIC ACID TABLET (FP) PO SCH (10:29)
[2019-01-11] MEDS: THIAMINE HCL 100 MG TABLET (FP) PO SCH (21:10)
[2019-01-11] MEDS: MELATONIN 5 MG TABLETS PO PRN (21:11)
[2019-01-12] MEDS: PHENYTOIN NA EXTENDED 100 MG CAPSULE (FP) PO SCH ×3 (06:31→21:16)
[2019-01-12] MEDS: ESCITALOPRAM OXALATE 10 MG TABLET (FP) PO SCH (09:58)
[2019-01-12] MEDS: PRENATAL VITAMINS W/ FOLIC ACID TABLET (FP) PO SCH (09:58)
[2019-01-12] MEDS: risperiDONE 2 MG TABLET PO SCH (09:58)
[2019-01-12] MEDS: MELATONIN 5 MG TABLETS PO PRN (21:16)
[2019-01-12] MEDS: THIAMINE HCL 100 MG TABLET (FP) PO SCH (21:16)
[2019-01-13] MEDS: PHENYTOIN NA EXTENDED 100 MG CAPSULE (FP) PO SCH ×3 (07:08→21:09)
[2019-01-13] MEDS: risperiDONE 2 MG TABLET PO SCH (09:58)
[2019-01-13] MEDS: ESCITALOPRAM OXALATE 10 MG TABLET (FP) PO SCH (09:58)
[2019-01-13] MEDS: PRENATAL VITAMINS W/ FOLIC ACID TABLET (FP) PO SCH (09:58)
[2019-01-13] MEDS: THIAMINE HCL 100 MG TABLET (FP) PO SCH (21:09)
[2019-01-13] MEDS: MELATONIN 5 MG TABLETS PO PRN (21:09)
[2019-01-14] MEDS: PHENYTOIN NA EXTENDED 100 MG CAPSULE (FP) PO SCH ×3 (06:41→21:21)
[2019-01-14] MEDS: NICOTINE POLACRILEX 2 MG GUM BC PRN (06:42)
[2019-01-14] MEDS: risperiDONE 2 MG TABLET PO SCH (09:58)
[2019-01-14] MEDS: PRENATAL VITAMINS W/ FOLIC ACID TABLET (FP) PO SCH (09:58)
[2019-01-14] MEDS: ESCITALOPRAM OXALATE 10 MG TABLET (FP) PO SCH (09:58)
[2019-01-14] MEDS: MELATONIN 5 MG TABLETS PO PRN (21:21)
[2019-01-14] MEDS: THIAMINE HCL 100 MG TABLET (FP) PO SCH (21:21)
[2019-01-15] MEDS: NICOTINE POLACRILEX 2 MG GUM BC PRN (07:03)
[2019-01-15] MEDS: PHENYTOIN NA EXTENDED 100 MG CAPSULE (FP) PO SCH ×3 (07:03→21:15)
[2019-01-15] MEDS: ESCITALOPRAM OXALATE 10 MG TABLET (FP) PO SCH (10:12)
[2019-01-15] MEDS: PRENATAL VITAMINS W/ FOLIC ACID TABLET (FP) PO SCH (10:12)
[2019-01-15] MEDS: risperiDONE 2 MG TABLET PO SCH (10:12)
[2019-01-15] MEDS: THIAMINE HCL 100 MG TABLET (FP) PO SCH (21:15)
[2019-01-15] MEDS: MELATONIN 5 MG TABLETS PO PRN (21:15)
[2019-01-16] MEDS: PHENYTOIN NA EXTENDED 100 MG CAPSULE (FP) PO SCH ×3 (06:56→21:16)
[2019-01-16] MEDS: PRENATAL VITAMINS W/ FOLIC ACID TABLET (FP) PO SCH (09:47)
[2019-01-16] MEDS: ESCITALOPRAM OXALATE 10 MG TABLET (FP) PO SCH (09:47)
[2019-01-16] MEDS: risperiDONE 2 MG TABLET PO SCH (09:47)
[2019-01-16] MEDS: THIAMINE HCL 100 MG TABLET (FP) PO SCH (21:16)
[2019-01-16] MEDS: MELATONIN 5 MG TABLETS PO PRN (21:16)
[2019-01-16] MEDS: NICOTINE POLACRILEX 2 MG GUM BC PRN (21:17)
[2019-01-17] MEDS: PHENYTOIN NA EXTENDED 100 MG CAPSULE (FP) PO SCH ×3 (06:55→21:10)
[2019-01-17] MEDS: NICOTINE POLACRILEX 2 MG GUM BC PRN (06:55)
[2019-01-17] MEDS: risperiDONE 2 MG TABLET PO SCH (10:07)
[2019-01-17] MEDS: PRENATAL VITAMINS W/ FOLIC ACID TABLET (FP) PO SCH (10:07)
[2019-01-17] MEDS: ESCITALOPRAM OXALATE 10 MG TABLET (FP) PO SCH (10:07)
[2019-01-17] MEDS: THIAMINE HCL 100 MG TABLET (FP) PO SCH (21:10)
[2019-01-18] MEDS: PHENYTOIN NA EXTENDED 100 MG CAPSULE (FP) PO SCH ×3 (06:38→21:11)
[2019-01-18] MEDS: NICOTINE POLACRILEX 2 MG GUM BC PRN ×3 (06:38→14:02)
[2019-01-18] MEDS: PRENATAL VITAMINS W/ FOLIC ACID TABLET (FP) PO SCH (10:04)
[2019-01-18] MEDS: ESCITALOPRAM OXALATE 10 MG TABLET (FP) PO SCH (10:04)
[2019-01-18] MEDS: risperiDONE 2 MG TABLET PO SCH (10:20)
[2019-01-18] MEDS: THIAMINE HCL 100 MG TABLET (FP) PO SCH (21:12)
[2019-01-19] MEDS: NICOTINE POLACRILEX 2 MG GUM BC PRN ×2 (06:41→21:17)
[2019-01-19] MEDS: PHENYTOIN NA EXTENDED 100 MG CAPSULE (FP) PO SCH ×3 (06:41→21:16)
[2019-01-19] MEDS: risperiDONE 2 MG TABLET PO SCH (09:44)
[2019-01-19] MEDS: ESCITALOPRAM OXALATE 10 MG TABLET (FP) PO SCH (09:44)
[2019-01-19] MEDS: PRENATAL VITAMINS W/ FOLIC ACID TABLET (FP) PO SCH (09:44)
[2019-01-19] MEDS: THIAMINE HCL 100 MG TABLET (FP) PO SCH (21:16)
[2019-01-20] MEDS: PHENYTOIN NA EXTENDED 100 MG CAPSULE (FP) PO SCH ×3 (06:40→21:10)
[2019-01-20] MEDS: NICOTINE POLACRILEX 2 MG GUM BC PRN ×2 (06:41→21:10)
[2019-01-20] MEDS: ESCITALOPRAM OXALATE 10 MG TABLET (FP) PO SCH (09:31)
[2019-01-20] MEDS: PRENATAL VITAMINS W/ FOLIC ACID TABLET (FP) PO SCH (09:31)
[2019-01-20] MEDS: risperiDONE 2 MG TABLET PO SCH (09:31)
[2019-01-20] MEDS: THIAMINE HCL 100 MG TABLET (FP) PO SCH (21:10)
[2019-01-21] MEDS: PHENYTOIN NA EXTENDED 100 MG CAPSULE (FP) PO SCH ×3 (06:27→21:19)
[2019-01-21] MEDS: NICOTINE POLACRILEX 2 MG GUM BC PRN ×2 (06:28→21:19)
[2019-01-21] MEDS: ESCITALOPRAM OXALATE 10 MG TABLET (FP) PO SCH (09:44)
[2019-01-21] MEDS: risperiDONE 2 MG TABLET PO SCH (09:44)
[2019-01-21] MEDS: PRENATAL VITAMINS W/ FOLIC ACID TABLET (FP) PO SCH (09:44)
[2019-01-21] MEDS: THIAMINE HCL 100 MG TABLET (FP) PO SCH (21:19)
[2019-01-22] MEDS: PHENYTOIN NA EXTENDED 100 MG CAPSULE (FP) PO SCH ×3 (06:32→21:15)
[2019-01-22] MEDS: NICOTINE POLACRILEX 2 MG GUM BC PRN ×4 (06:33→21:16)
[2019-01-22] MEDS: ESCITALOPRAM OXALATE 10 MG TABLET (FP) PO SCH (09:26)
[2019-01-22] MEDS: PRENATAL VITAMINS W/ FOLIC ACID TABLET (FP) PO SCH (09:26)
[2019-01-22] MEDS: risperiDONE 2 MG TABLET PO SCH (09:26)
[2019-01-22] MEDS: THIAMINE HCL 100 MG TABLET (FP) PO SCH (21:16)
[2019-01-23] MEDS: PHENYTOIN NA EXTENDED 100 MG CAPSULE (FP) PO SCH ×3 (06:40→21:13)
[2019-01-23] MEDS: NICOTINE POLACRILEX 2 MG GUM BC PRN ×3 (06:41→21:14)
[2019-01-23] MEDS: ESCITALOPRAM OXALATE 10 MG TABLET (FP) PO SCH (09:38)
[2019-01-23] MEDS: PRENATAL VITAMINS W/ FOLIC ACID TABLET (FP) PO SCH (09:38)
[2019-01-23] MEDS: risperiDONE 2 MG TABLET PO SCH (09:38)
[2019-01-23] MEDS: THIAMINE HCL 100 MG TABLET (FP) PO SCH (21:14)
[2019-01-24] MEDS: PHENYTOIN NA EXTENDED 100 MG CAPSULE (FP) PO SCH ×3 (06:59→21:09)
[2019-01-24] MEDS: NICOTINE POLACRILEX 2 MG GUM BC PRN ×2 (07:00→21:09)
[2019-01-24] MEDS: ESCITALOPRAM OXALATE 10 MG TABLET (FP) PO SCH (09:50)
[2019-01-24] MEDS: PRENATAL VITAMINS W/ FOLIC ACID TABLET (FP) PO SCH (09:50)
[2019-01-24] MEDS: risperiDONE 2 MG TABLET PO SCH (09:50)
[2019-01-24] MEDS: THIAMINE HCL 100 MG TABLET (FP) PO SCH (21:09)
[2019-01-25] MEDS: NICOTINE POLACRILEX 2 MG GUM BC PRN ×2 (06:43→10:29)
[2019-01-25] MEDS: PHENYTOIN NA EXTENDED 100 MG CAPSULE (FP) PO SCH ×3 (06:43→21:24)
[2019-01-25] MEDS: PRENATAL VITAMINS W/ FOLIC ACID TABLET (FP) PO SCH (10:28)
[2019-01-25] MEDS: ESCITALOPRAM OXALATE 10 MG TABLET (FP) PO SCH (10:28)
[2019-01-25] MEDS: risperiDONE 2 MG TABLET PO SCH (10:28)
[2019-01-25] MEDS: THIAMINE HCL 100 MG TABLET (FP) PO SCH (21:24)
[2019-01-26 06:48] VITALS: BP 139/71; PULSE 67; TEMP 97.9
[2019-01-26] MEDS: PHENYTOIN NA EXTENDED 100 MG CAPSULE (FP) PO SCH (07:12)
[2019-01-26] MEDS: NICOTINE POLACRILEX 2 MG GUM BC PRN (07:13)
[2019-01-26] MEDS: PRENATAL VITAMINS W/ FOLIC ACID TABLET (FP) PO SCH (09:58)
[2019-01-26] MEDS: ESCITALOPRAM OXALATE 10 MG TABLET (FP) PO SCH (09:58)
[2019-01-26] MEDS: risperiDONE 2 MG TABLET PO SCH (09:58)
--- NOTE | 2019-01-26 11:17 | PN ---
[facility] Progress Note (SOAP) Subjective: PT COMPLETED REHAB AND DISCHARGING TODAY. PT MET WITH HIS COUNSELOR AND HAS BEEN REFERRED TO [facility] ON [address], [place]. PT IS HOMELESS AND HAS BEEN REFERRED TO [facility] ON [address] [place] [address] FOR FOLLOW UP. PT REPORTS HE HAS PRIMARY CARE WITH [facility] AND WILL FOLLOW UP WITH MEDICAL MANAGEMENT ON Friday02/01/19. REPORTS HE HAS OWN DILANTIN RX. ALERT O X 3. AMBULATES WITH [facility]Y GAIT. DENIES S/H/I. Objective: 01/26/19 11:21 Vital Signs - 24 hr 01/26/19 01/26/19 01/26/19 00:30 03:30 06:47 Temperature 97.9 F Pulse Rate 67 Respiratory 18 18 18 Rate Blood Pressure 139/71 Laboratory Tests 01/08/19 01/08/19 01/08/19 08:22 08:22 08:22 WBC 3.8 L RBC 4.52 Hgb 13.4 Hct 41.1 MCV 91.0 MCH 29.5 MCHC 32.5 RDW 13.9 Plt Count 171 D MPV 10.2 Sodium 142 Potassium 3.9 Chloride 106 Carbon Dioxide 32 Anion Gap 4 L BUN 7.4 Creatinine 1.0 Est GFR (CKD-EPI)AfAm 100.55 Est GFR (CKD-EPI)NonAf 86.76 Random Glucose 119 H Calcium 9.3 Total Bilirubin 0.5 AST 26 ALT 23 Alkaline Phosphatase 85 Total Protein 7.4 Albumin 3.6 Urine Color Urine Appearance Urine pH Ur Specific [place] Urine Protein Urine Glucose (UA) Urine Ketones Urine Blood Urine Nitrite Urine Bilirubin Urine Urobilinogen Ur Leukocyte Esterase Phenytoin RPR Titer Nonreactive 01/08/19 01/08/19 09:30 12:30 WBC RBC Hgb Hct MCV MCH MCHC RDW Plt Count MPV Sodium Potassium Chloride Carbon Dioxide Anion Gap BUN Creatinine Est GFR (CKD-EPI)AfAm Est GFR (CKD-EPI)NonAf Random Glucose Calcium Total Bilirubin AST ALT Alkaline Phosphatase Total Protein Albumin Urine Color Yellow Urine Appearance Clear Urine pH 8.5 H Ur Specific [place] 1.020 Urine Protein Negative Urine Glucose (UA) Negative Urine Ketones Negative Urine Blood Negative Urine Nitrite Negative Urine Bilirubin Negative Urine Urobilinogen 0.2 Ur Leukocyte Esterase Negative Phenytoin 12.8 RPR Titer Home Medications Medication Instructions Recorded Phenytoin Na Extended [Dilantin -] 100 mg PO TID #90 capsule 11/24/18 Lexapro - 10 mg PO DAILY 01/07/19 Risperdal 2 mg PO DAILY 01/07/19 Assessment: 01/26/19 11:22 NAD MEDICALLY STABLE All Active Problems Alcohol dependence (Chronic) Cocaine dependence (Chronic) History of seizures (Chronic Nicotine dependence (Chronic) Cannabis dependence (Acute) Plan: FOLLOW UP WITH CD AFTERCARE RECOMMENDED. FOLLOW UP WITH PRIMARY CARE SCHEDULED ON FRIDAY.
== END 2019-01-26 11:50 | disposition home or self-care (01) | DRG 772 ==
LOC: YASAS 12:24 → Y5N 20:28
PROVIDERS: ADMIT Neuromusculoskeletal Medicine & OMM; ATTEND Neuromusculoskeletal Medicine & OMM
PROC: HZ42ZZZ Group Counseling for Substance Abuse Treatment, Cognitive-Behavioral (ICD-10-PCS; principal; 2019-01-07)
DX: F10.20 Alcohol dependence, uncomplicated (principal); F14.20 Cocaine dependence, uncomplicated; F17.210 Nicotine dependence, cigarettes, uncomplicated; F20.0 Paranoid schizophrenia; F19.24 Other psychoactive substance dependence with psychoactive substance-induced mood disorder; F19.282 Other psychoactive substance dependence with psychoactive substance-induced sleep disorder; G40.909 Epilepsy, unspecified, not intractable, without status epilepticus
CPT/HCPCS: 36415; 80053; 80185; 81003; 85027; 86593; 93005; 93010

== ENCOUNTER 2020-01-19 12:33 | Inpatient (IN) | payer OTHER ==
--- NOTE | 2020-01-19 13:22 | BHS.RME ---
Substance Use & Tx History - Substance Use History Alcohol Substance amount: 2 pints vodka and 2 six packs beer Frequency of use: Daily Date of Last Use: 01/18/20 Cocaine-Crack Substance amount: $50 Frequency of use: Less than 3 times per week Substance route: Smoking Date of Last Use: 01/18/20 Physical/Psych/Mental Status - Behavior General Behavior: Increased activity (restlessness, agitation) Eye Contact: Normal - Cooperativeness Cooperativeness: Cooperative - Thinking Thought Processes: Tight, Logical, Goal Directed - Physical Health Problems Is patient presently having any pain?: No Does patient presently have any injuries (include location): No Does patient currently have a fever: No Is patient : No CIWA Nausea/Vomitin-No Nausea/No Vomiting Muscle Tremors: None Anxiety: 3 Agitation: 3 Paroxysmal Sweats: 2 Orientation: 0-Oriented Tacttile Disturbances: 0-None Auditory Disturbances: 0-None Visual Disturbances: 0-None Headache: 0-None Present CIWA-Ar Total Score: 8
--- NOTE | 2020-01-19 14:14 | HP ---
CIWA Score Nausea/Vomitin-No Nausea/No Vomiting Muscle Tremors: None Anxiety: 3 Agitation: 3 Paroxysmal Sweats: 2 Orientation: 0-Oriented Tacttile Disturbances: 0-None Auditory Disturbances: 0-None Visual Disturbances: 0-None Headache: 0-None Present CIWA-Ar Total Score: 8 - Admission Criteria OASAS Guidelines: Admission for Medically Managed Detox: Requires at least one of the followin. CIWA greater than 12 2. Seizures within the past 24 hours 3. Delirium tremens within the past 24 hours 4. Hallucinations within the past 24 hours 5. Acute intervention needed for co occurring medical disorder 6. Acute intervention needed for co occurring psychiatric disorder 7. Severe withdrawal that cannot be handled at a lower level of care (continued vomiting, continued diarrhea, abnormal vital signs) requiring intravenous medication and/or fluids 8. Admitting History and Physical - Admission Chief Complaint: Mr. Hamm is a 54 yo gentleman who presents to [facility] stating he has a "problem with alcohol" and requests admission to detox. History of Present Illness: Mr. Hamm is a 54 yo gentleman who presents to [facility] stating he has a "problem with alcohol" and requests admission to detox. He was at [facility] last night and referred her to detox. He states he received no medication at [place] [facility]: Seizure disorder on Dilantin, not alcohol related, began 9 years ago, last seizure 2 mos ago, med noncompliance [facility], Legal: none Psych: depression on Lexapro, risperdal, last taken 2 days ago SOC: homeless, in a basement - Substance Use History Alcohol Substance amount: 2 pints vodka and 2 six packs beer Frequency of use: Daily Date of Last Use: 01/18/20 First use age 20y. 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 Cocaine-Crack Substance amount: $50 Frequency of use: Less than 3 times per week Substance route: Smoking Date of Last Use: 01/18/20 First use age 27 y No methadone or Suboxone Meets criteria for admission due to: comorbid medical and psychiatric issues, homeless, high risk relapse/poor recovery environment History Source: Patient Limitations to Obtaining History: No Limitations - Smoking History Smoking history: Current every day smoker Have you smoked in the past 12 months: Yes Aproximately how many cigarettes per day: 3 - Alcohol/Substance Use Hx Alcohol Use: Yes Admission ROS BHS - HPI Allergies/Adverse Reactions: Allergies Allergy/AdvReac Type Severity Reaction Status Date / Time No Known Allergies Allergy Verified 01/07/19 19:23 Exam Limitations: No Limitations - Ebola screening Have you traveled outside of the country in the last 21 days: No Have you been sick,other than usual withdrawal symptoms: No Do you have a fever: No - Review of Systems Constitutional: Loss of Appetite, Unintentional Wgt. Loss (lost 15 lbs in 2 mos) EENT: reports: No Symptoms Reported Respiratory: reports: No Symptoms reported Cardiac: reports: No Symptoms Reported GI: reports: No Symptoms Reported : reports: No Symptoms Reported Musculoskeletal: reports: No Symptoms Reported Integumentary: reports: No Symptoms Reported Neuro: reports: No Symptoms reported Endocrine: reports: No Symptoms Reported Hematology: reports: No Symptoms Reported Psychiatric: reports: Anxious Patient History - Patient Medical History Hx Anemia: No Hx Asthma: No Hx Chronic Obstructive Pulmonary Disease (COPD): No Hx Cancer: No Hx Cardiac Disorders: No Hx Congestive Heart Failure: No Hx Hypertension: No Hx Hypercholesterolemia: No Hx Pacemaker: No HX Cerebrovascular Accident: No Hx Seizures: Yes (last 08/15) Hx Dementia: No Hx Diabetes: No Hx Gastrointestinal Disorders: No Hx Liver Disease: No Hx Genitourinary Disorders: No Hx Sexually Transmitted Disorders: No Hx Renal Disease (ESRD): No Hx Thyroid Disease: No Hx Human Immunodeficiency Virus (HIV): No (last 05/14 negative) Hx Hepatitis C: No Hx Depression: Yes Hx Suicide Attempt: No Hx Bipolar Disorder: No Hx Schizophrenia: Yes - Patient Surgical History Past Surgical History: No Hx Neurologic Surgery: No Hx Cataract Extraction: No Hx Cardiac Surgery: No Hx Lung Surgery: No Hx Breast Surgery: No Hx Breast Biopsy: No Hx Abdominal Surgery: No Hx Appendectomy: No Hx Cholecystectomy: No Hx Genitourinary Surgery: No Hx Section: No Hx Orthopedic Surgery: No Anesthesia Reaction: No - PPD History Date: 11/23/18 - Smoking Cessation Smoking history: Current every day smoker Have you smoked in the past 12 months: Yes Aproximately how many cigarettes per day: 5 Cigars Per Day: 0 Hx Chewing Tobacco Use: No Initiated information on smoking cessation: Yes 'Breaking Loose' booklet given: 01/19/20 Admission Physical Exam [facility] - Physical General Appearance: Yes: Nourished, Thin, Tremorous HEENTM: Yes: EOMI, Hearing grossly Normal, Normocephalic, Normal Voice Respiratory: Yes: Lungs Clear, No Respiratory Distress, No Accessory Muscle Use Neck: Yes: Within Normal Limits, Supple Breast: Yes: Breast Exam Deferred Abdominal: Yes: Non Tender, Flat, Soft, Increased Bowel Sounds Genitourinary: Yes: Other (deferred) Back: Yes: Normal Inspection Musculoskeletal: Yes: Gait Steady Extremities: Yes: Non-Tender Neurological: Yes: Alert, Normal Mood/Affect, Normal Response Integumentary: Yes: Other (multiple superficial scars on arms) - Diagnostic (1) Alcohol dependence with uncomplicated withdrawal Current Visit: Yes Status: Acute (2) Cocaine abuse Current Visit: Yes Status: Acute (3) Depression Current Visit: Yes Status: Chronic (4) History of seizures Current Visit: No Status: Chronic (5) Nicotine abuse Current Visit: Yes Status: Acute Cleared for Admission [facility] - Detox or Rehab [facility] Level of Care: Medically Managed Detox Regimen/Protocol: Librium Breathalyzer - Breathalyzer Breathalyzer: 0.006 Urine Drug Screen - Test Device Lot number: [id number] Expiration date: 03/27/21 - Control Is test valid?: Yes - Results Drug screen NEGATIVE: No Urine drug screen results: VIVIAN-Cocaine Inpatient Rehab Admission - Rehab Decision to Admit Inpatient rehab admission?: No
[2020-01-19] MEDS ORDERED: IBUPROFEN 400 MG TABLET (FP) PO PRN (14:22)
[2020-01-19] MEDS ORDERED: MENTHOL/PHENOL 1 EACH UD MM PRN (14:22)
[2020-01-19] MEDS ORDERED: METHOCARBAMOL 500 MG TABLET PO PRN (14:22)
[2020-01-19] MEDS ORDERED: ONDANSETRON *ODT* 4 MG TABLET SL PRN (14:22)
[2020-01-19] MEDS ORDERED: MAGNESIUM HYDROX 2400MG/30ML ORAL SUSPENSION 30 ML CUP PO PRN (14:22)
[2020-01-19] MEDS ORDERED: chlordiazePOXIDE HCL 25 MG CAPSULE PO PRN (14:22)
[2020-01-19] MEDS ORDERED: MAGNESIUM CITRATE 300 ML BOTTLE PO PRN (14:22)
[2020-01-19] MEDS ORDERED: ACETAMINOPHEN 325 MG TABLET (FP) PO PRN ×2 (14:22)
[2020-01-19] MEDS ORDERED: BISMUTH SUBSALICYLATE 262 MG/15 ML BTL PO PRN (14:22)
[2020-01-19] MEDS ORDERED: MAG HYDROX/AL HYDROX/SIMETH 30 ML UNIT-DOSE CUP PO PRN (14:22)
[2020-01-19] MEDS: chlordiazePOXIDE HCL 25 MG CAPSULE PO SCH ×2 (17:41→22:15)
[2020-01-19] MEDS: hydrOXYzine PAMOATE 25 MG CAPSULE (FP) PO SCH ×2 (17:41→22:15)
[2020-01-19] MEDS: PHENYTOIN NA EXTENDED 100 MG CAPSULE (FP) PO SCH ×2 (17:41→22:15)
[2020-01-19] MEDS: NICOTINE 7 MG/24 HOURS TOPICAL PATCH TD SCH (17:42)
[2020-01-19] MEDS: PRENATAL VITAMINS W/ FOLIC ACID TABLET (FP) PO SCH (17:43)
[2020-01-19 18:08] LABS: HEMATOCRIT 35.6 % (35.4-49); HEMOGLOBIN 11.5 GM/dL (11.7-16.9); MCH 30.2 pg (25.7-33.7); MCHC 32.2 g/dl (32.0-35.9); MEAN CELL VOLUME 93.9 fl (80-96); PLATELET COUNT 258 K/MM3 (134-434); RDW 13.5 % (11.9-15.9); WHITE BLOOD COUNT 3.2 K/mm3 (4.0-10.0)
[2020-01-19 18:11] LABS: ALBUMIN 3.5 g/dl (3.4-5.0); BILIRUBIN,TOTAL 0.6 mg/dL (0.2-1); CALCIUM 8.8 mg/dL (8.5-10.1); CREATININE 0.7 mg/dL (0.55-1.3); POTASSIUM 3.8 mmol/L (3.5-5.1); TOT PROT 7.6 g/dl (6.4-8.2)
[2020-01-19] MEDS: THIAMINE HCL 100 MG TABLET (FP) PO SCH (22:15)
[2020-01-19] MEDS: MELATONIN 5 MG TABLETS PO SCH (22:15)
[2020-01-20] MEDS: PHENYTOIN NA EXTENDED 100 MG CAPSULE (FP) PO SCH ×3 (05:22→22:21)
[2020-01-20] MEDS: chlordiazePOXIDE HCL 25 MG CAPSULE PO SCH ×4 (05:22→22:20)
[2020-01-20] MEDS: hydrOXYzine PAMOATE 25 MG CAPSULE (FP) PO SCH ×5 (05:24→22:20)
[2020-01-20] MEDS: PRENATAL VITAMINS W/ FOLIC ACID TABLET (FP) PO SCH (10:07)
[2020-01-20] MEDS: NICOTINE 7 MG/24 HOURS TOPICAL PATCH TD SCH (10:09)
--- NOTE | 2020-01-20 11:05 | PN ---
[facility] CIWA - CIWA Score Nausea/Vomitin-Mild Nausea/No Vomiting Muscle Tremors: 2 Anxiety: 2 Agitation: 2 Paroxysmal Sweats: No Perspiration Orientation: 0-Oriented Tacttile Disturbances: 1-Very Mild Itch/Numbness Auditory Disturbances: 0-None Visual Disturbances: 0-None Headache: 2-Mild CIWA-Ar Total Score: 10 S Progress Note (SOAP) Subjective: alert,irritable,anxious,interrupted sleep,nausea,tremor Objective: 01/20/20 11:04 Vital Signs Temperature 98.0 F 01/20/20 09:11 Pulse Rate 75 01/20/20 09:11 Respiratory Rate 18 01/20/20 09:11 Blood Pressure 134/63 01/20/20 09:11 O2 Sat by Pulse Oximetry (%) 99 01/20/20 06:09 Laboratory Last Values WBC 3.2 K/mm3 (4.0-10.0) L 01/19/20 14:15 RBC 3.80 M/mm3 (4.00-5.60) L 01/19/20 14:15 Hgb 11.5 GM/dL (11.7-16.9) L 01/19/20 14:15 Hct 35.6 % (35.4-49) 01/19/20 14:15 MCV 93.9 fl (80-96) 01/19/20 14:15 MCH 30.2 pg (25.7-33.7) 01/19/20 14:15 MCHC 32.2 g/dl (32.0-35.9) 01/19/20 14:15 RDW 13.5 % (11.9-15.9) 01/19/20 14:15 Plt Count 258 K/MM3 (134-434) D 01/19/20 14:15 MPV 9.0 fl (7.5-11.1) D 01/19/20 14:15 Sodium 142 mmol/L (136-145) 01/19/20 14:15 Potassium 3.8 mmol/L (3.5-5.1) 01/19/20 14:15 Chloride 107 mmol/L (98-107) 01/19/20 14:15 Carbon Dioxide 26 mmol/L (21-32) 01/19/20 14:15 Anion Gap 9 MMOL/L (8-16) 01/19/20 14:15 BUN 5.0 mg/dL (7-18) L 01/19/20 14:15 Creatinine 0.7 mg/dL (0.55-1.3) 01/19/20 14:15 Est GFR (CKD-EPI)AfAm 125.75 01/19/20 14:15 Est GFR (CKD-EPI)NonAf 108.50 01/19/20 14:15 Random Glucose 111 mg/dL (74-106) H 01/19/20 14:15 Calcium 8.8 mg/dL (8.5-10.1) 01/19/20 14:15 Total Bilirubin 0.6 mg/dL (0.2-1) 01/19/20 14:15 AST 57 U/L (15-37) H 01/19/20 14:15 ALT 48 U/L (13-61) 01/19/20 14:15 Alkaline Phosphatase 101 U/L (45-117) 01/19/20 14:15 Total Protein 7.6 g/dl (6.4-8.2) 01/19/20 14:15 Albumin 3.5 g/dl (3.4-5.0) 01/19/20 14:15 Syphilis Serology Non-reactive (NONREACTIVE) 01/19/20 14:15 Assessment: 01/20/20 11:04 withdrawal symptom Plan: continue detox librium regimen,repeat cbc,fasting glucose in am
--- NOTE | 2020-01-20 14:28 | CONSULT ---
[facility] Psychiatric Consult - Data Date of interview: 01/20/20 Admission source: [facility] Identifying data: Patient is a 54 year old single male, father of two, unemployed, homeless, and is supported by food stamps. This is one of multiple admissions for patient. Patient admitted to for treatment of alcohol and cocaine dependence. Substance Abuse History: - Substance Use History. Alcohol. Substance amount: 2 pints vodka and 2 six packs beer. Frequency of use: Daily. Date of Last Use: 01/18/20. First use age 20y. No alcohol related seizures. Blackout 2 mos ago. 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 Cocaine-Crack. Substance amount: $50. Frequency of use: Less than 3 times per week. Substance route: Smoking. Date of Last Use: 01/18/20. First use age 27 y. No methadone or Suboxone. Meets criteria for admission due to: comorbid medical and psychiatric issues, homeless, high risk relapse/poor recovery environment. History Source: Patient. Limitations to Obtaining History: No Limitations. - Smoking History. Smoking history: Current every day smoker. Have you smoked in the past 12 months: Yes. Aproximately how many cigarettes per day: 3. - Alcohol/Substance Use. Hx Alcohol Use: Yes Medical History: Seizure disorder. Psychiatric History: Mr. Hamm reports history of two psychiatric hospitalizations ( [facility]) and most recently in 2019 at [facility]. Patient reports history of depression but as per previous notes patient has a history of schizophrenia. As per Dr. Alvarez's note, Mr. Hamm was hospitalized at [facility] five years ago due to hearing voices. Patient is totally lost in outpatient psychiatric care. Mr. Hamm stated to flex o writer operator that he was at [facility] two days ago due to his substance abuse and was given a dose of lexapro 10mg + risperdal 2mg. Previous notes confirm doses given to him at [facility]. History of one suicide attempt via overdose. At present patient presents as lethargic. He denies auditory/visual hallucinations, suicidal/homicidal ideation. Physical/Sexual Abuse/Trauma History: denies. Mental Status Exam - Mental Status Exam Alert and Oriented to: Time, Place, Person Cognitive Function: Good Patient Appearance: Unkempt Mood: Withdrawn Affect: Mood Congruent Patient Behavior: Fatigued, Asleep Speech Pattern: Delayed (Patient lethargic) Voice Loudness: Mildly Soft/Quiet Thought Process: Goal Oriented Thought Disorder: Not Present Hallucinations: Denies Suicidal Ideation: Denies Homicidal Ideation: Denies Insight/Judgement: Poor Sleep: Poorly Appetite: Fair Muscle strength/Tone: Normal Gait/Station: Other (Did not observe gait.) Psychiatric Findings - Problem List ([place] 1, 2,3) (1) Alcohol dependence with uncomplicated withdrawal Status: Acute (2) Cocaine abuse Status: Chronic (3) Nicotine abuse Status: Acute (4) Schizophrenia Status: Chronic - Initial Treatment Plan Initial Treatment Plan: Psychoeducation provided. Detoxification in progress. Will order Lexapro 10mg daily + Risperdal 2mg HS. Benefits and side effects discussed. Verbal consent given.
--- NOTE | 2020-01-20 17:41 | EKG ---
Test Reason : Blood Pressure : / mmHG Vent. Rate : 067 BPM Atrial Rate : 067 BPM P-R Int : 160 ms QRS Dur : 078 ms QT Int : 426 ms P-R-T Axes : 074 -39 052 degrees QTc Int : 450 ms NORMAL SINUS RHYTHM LEFT AXIS DEVIATION ABNORMAL ECG WHEN COMPARED WITH ECG OF 07-JAN-2019 21:14, QT HAS LENGTHENED Confirmed by ZACH GUTIERREZ, ETHAN ([id number]) on 01/20/2020 5:41:11 PM Referred By: Confirmed By:ETHAN SERRANO MD
[2020-01-20] MEDS: risperiDONE 2 MG TABLET PO SCH (22:21)
[2020-01-20] MEDS: MELATONIN 5 MG TABLETS PO SCH (22:21)
[2020-01-20] MEDS: THIAMINE HCL 100 MG TABLET (FP) PO SCH (22:21)
[2020-01-21] MEDS: chlordiazePOXIDE HCL 25 MG CAPSULE PO SCH ×4 (06:25→22:04)
[2020-01-21] MEDS: hydrOXYzine PAMOATE 25 MG CAPSULE (FP) PO SCH ×5 (06:25→22:04)
[2020-01-21] MEDS: PHENYTOIN NA EXTENDED 100 MG CAPSULE (FP) PO SCH ×3 (06:25→22:04)
[2020-01-21 09:59] LABS: HEMATOCRIT 40.8 % (35.4-49); HEMOGLOBIN 13.1 GM/dL (11.7-16.9); MCHC 32.1 g/dl (32.0-35.9); MEAN CELL VOLUME 93.6 fl (80-96); MEAN PLT VOLUME 9.5 fl (7.5-11.1); PLATELET COUNT 258 K/MM3 (134-434); RBC 4.36 M/mm3 (4.00-5.60); RDW 13.7 % (11.9-15.9); WHITE BLOOD COUNT 3.6 K/mm3 (4.0-10.0)
[2020-01-21] MEDS ORDERED: ESCITALOPRAM OXALATE 10 MG TABLET PO SCH (10:00)
[2020-01-21] MEDS: NICOTINE 7 MG/24 HOURS TOPICAL PATCH TD SCH (10:13)
[2020-01-21] MEDS: PRENATAL VITAMINS W/ FOLIC ACID TABLET (FP) PO SCH (10:13)
--- NOTE | 2020-01-21 10:21 | PN ---
S CIWA - CIWA Score Nausea/Vomitin-Mild Nausea/No Vomiting Muscle Tremors: 2 Anxiety: 2 Agitation: 1-Slight > Activity Paroxysmal Sweats: No Perspiration Orientation: 0-Oriented Tacttile Disturbances: 0-None Auditory Disturbances: 0-None Visual Disturbances: 0-None Headache: 0-None Present CIWA-Ar Total Score: 6 B[facility] Progress Note (SOAP) Subjective: alert,irritable,anxious,interrupted sleep,pain in the body Objective: 01/21/20 10:19 withdrawal symptom 01/21/20 10:19 Laboratory Last Values WBC 3.6 K/mm3 (4.0-10.0) L 01/21/20 07:10 RBC 4.36 M/mm3 (4.00-5.60) 01/21/20 07:10 Hgb 13.1 GM/dL (11.7-16.9) 01/21/20 07:10 Hct 40.8 % (35.4-49) 01/21/20 07:10 MCV 93.6 fl (80-96) 01/21/20 07:10 MCH 30.0 pg (25.7-33.7) 01/21/20 07:10 MCHC 32.1 g/dl (32.0-35.9) 01/21/20 07:10 RDW 13.7 % (11.9-15.9) 01/21/20 07:10 Plt Count 258 K/MM3 (134-434) 01/21/20 07:10 MPV 9.5 fl (7.5-11.1) 01/21/20 07:10 Sodium 142 mmol/L (136-145) 01/19/20 14:15 Potassium 3.8 mmol/L (3.5-5.1) 01/19/20 14:15 Chloride 107 mmol/L (98-107) 01/19/20 14:15 Carbon Dioxide 26 mmol/L (21-32) 01/19/20 14:15 Anion Gap 9 MMOL/L (8-16) 01/19/20 14:15 BUN 5.0 mg/dL (7-18) L 01/19/20 14:15 Creatinine 0.7 mg/dL (0.55-1.3) 01/19/20 14:15 Est GFR (CKD-EPI)AfAm 125.75 01/19/20 14:15 Est GFR (CKD-EPI)NonAf 108.50 01/19/20 14:15 Random Glucose 111 mg/dL (74-106) H 01/19/20 14:15 Fasting Glucose 85 mg/dL (74-106) 01/21/20 07:10 Calcium 8.8 mg/dL (8.5-10.1) 01/19/20 14:15 Total Bilirubin 0.6 mg/dL (0.2-1) 01/19/20 14:15 AST 57 U/L (15-37) H 01/19/20 14:15 ALT 48 U/L (13-61) 01/19/20 14:15 Alkaline Phosphatase 101 U/L (45-117) 01/19/20 14:15 Total Protein 7.6 g/dl (6.4-8.2) 01/19/20 14:15 Albumin 3.5 g/dl (3.4-5.0) 01/19/20 14:15 Syphilis Serology Non-reactive (NONREACTIVE) 01/19/20 14:15 COVID-19 (CARL) Not detected (Not Detected) 01/19/20 15:00 01/21/20 10:20 fasting glucose is 85 Assessment: 01/21/20 10:21 withdrawal symptom Plan: continue detox librium regimen,discharge in am
--- NOTE | 2020-01-21 15:38 | PN ---
[facility] Progress Note Note: addendum patient is having withdrawal symptom,continue detox librium regimen
--- NOTE | 2020-01-21 15:42 | PN ---
[facility] Progress Note Note: history of seizure ,on dilantin 100 mgs po tid,dilatin level ordered in am,seizure precaution
[2020-01-21] MEDS: NICOTINE POLACRILEX 2 MG GUM BUC PRN ×2 (18:33→22:04)
[2020-01-21] MEDS: MELATONIN 5 MG TABLETS PO SCH (22:04)
[2020-01-21] MEDS: risperiDONE 2 MG TABLET PO SCH (22:04)
[2020-01-21] MEDS: THIAMINE HCL 100 MG TABLET (FP) PO SCH (22:04)
[2020-01-22] MEDS ORDERED: chlordiazePOXIDE HCL 10 MG CAPSULE PO PRN
[2020-01-22] MEDS ORDERED: chlordiazePOXIDE HCL 10 MG CAPSULE PO SCH (05:00)
[2020-01-22] MEDS: PHENYTOIN NA EXTENDED 100 MG CAPSULE (FP) PO SCH (05:49)
[2020-01-22] MEDS: hydrOXYzine PAMOATE 25 MG CAPSULE (FP) PO SCH (05:49)
[2020-01-22] MEDS: NICOTINE POLACRILEX 2 MG GUM BUC PRN (05:50)
[2020-01-22 09:17] VITALS: BP 118/72; PULSE 81; TEMP 98.3
--- NOTE | 2020-01-22 10:30 | DS ---
[facility] Detox Discharge Summary Admission Date: 01/19/20 Discharge Date: 01/22/20 (Pt left AMA) - History Present History: Alcohol Dependence, Cocaine Dependence Additional Comments: Pt left AMA. Pt did not complete the detox protocol. Pt states, "i have to take care of something". An attempt to let pt stay and complete the detox protocol failed. Pt is encouraged to follow-up with an outpatient CD program and also to follow-up with his pmd which he verbalized understanding. Pt is alert and oriented x3 and in no acute respiratory distress. Pertinent Past History: h/o seizure disorder, alcohol, and cocaine use disorder. - Physical Exam Results Vital Signs: Vital Signs Temperature 98.3 F 01/22/20 08:42 Pulse Rate 81 01/22/20 08:42 Respiratory Rate 18 01/22/20 08:42 Blood Pressure 118/72 01/22/20 08:42 O2 Sat by Pulse Oximetry (%) 97 01/22/20 06:07 Vital Signs 01/22/20 01/22/20 01/22/20 03:30 06:07 08:42 Temperature 97.4 F L 98.3 F Pulse Rate 65 81 Respiratory 18 18 18 Rate Blood Pressure 122/76 118/72 O2 Sat by Pulse 97 Oximetry (%) Laboratory Last Values WBC 3.6 K/mm3 (4.0-10.0) L 01/21/20 07:10 RBC 4.36 M/mm3 (4.00-5.60) 01/21/20 07:10 Hgb 13.1 GM/dL (11.7-16.9) 01/21/20 07:10 Hct 40.8 % (35.4-49) 01/21/20 07:10 MCV 93.6 fl (80-96) 01/21/20 07:10 MCH 30.0 pg (25.7-33.7) 01/21/20 07:10 MCHC 32.1 g/dl (32.0-35.9) 01/21/20 07:10 RDW 13.7 % (11.9-15.9) 01/21/20 07:10 Plt Count 258 K/MM3 (134-434) 01/21/20 07:10 MPV 9.5 fl (7.5-11.1) 01/21/20 07:10 Sodium 142 mmol/L (136-145) 01/19/20 14:15 Potassium 3.8 mmol/L (3.5-5.1) 01/19/20 14:15 Chloride 107 mmol/L (98-107) 01/19/20 14:15 Carbon Dioxide 26 mmol/L (21-32) 01/19/20 14:15 Anion Gap 9 MMOL/L (8-16) 01/19/20 14:15 BUN 5.0 mg/dL (7-18) L 01/19/20 14:15 Creatinine 0.7 mg/dL (0.55-1.3) 01/19/20 14:15 Est GFR (CKD-EPI)AfAm 125.75 01/19/20 14:15 Est GFR (CKD-EPI)NonAf 108.50 01/19/20 14:15 Random Glucose 111 mg/dL (74-106) H 01/19/20 14:15 Fasting Glucose 85 mg/dL (74-106) 01/21/20 07:10 Calcium 8.8 mg/dL (8.5-10.1) 01/19/20 14:15 Total Bilirubin 0.6 mg/dL (0.2-1) 01/19/20 14:15 AST 57 U/L (15-37) H 01/19/20 14:15 ALT 48 U/L (13-61) 01/19/20 14:15 Alkaline Phosphatase 101 U/L (45-117) 01/19/20 14:15 Total Protein 7.6 g/dl (6.4-8.2) 01/19/20 14:15 Albumin 3.5 g/dl (3.4-5.0) 01/19/20 14:15 Syphilis Serology Non-reactive (NONREACTIVE) 01/19/20 14:15 COVID-19 (CARL) Not detected (Not Detected) 01/19/20 15:00 Labs noted. Pertinent Admission Physical Exam Findings: withdrawal symptoms. - Treatment Hospital Course: Detox Protocol Followed - Medication Discharge Medications: Ambulatory Orders Escitalopram Oxalate [Lexapro -] 10 mg PO DAILY 01/19/20 Phenytoin Na Extended [Dilantin -] 100 mg PO TID 01/19/20 Risperidone [Risperdal] 2 mg PO DAILY 01/19/20 - Diagnosis (1) Alcohol dependence with uncomplicated withdrawal Current Visit: Yes Status: Acute (2) Cocaine abuse Current Visit: Yes Status: Chronic (3) Nicotine abuse Current Visit: Yes Status: Acute (4) Alcohol dependence Current Visit: No Status: Chronic Qualifiers: Substance use status: uncomplicated Qualified Code(s): F10.20 - Alcohol dependence, uncomplicated (5) History of seizures Current Visit: No Status: Chronic - AMA Did Patient Leave Against Medical Advice: Yes
[2020-01-23] MEDS ORDERED: chlordiazePOXIDE HCL 10 MG CAPSULE PO SCH (05:00)
[2020-01-24] MEDS ORDERED: chlordiazePOXIDE HCL 10 MG CAPSULE PO ONE (05:00)
== END 2020-01-22 09:22 | disposition left against medical advice (07) | DRG 770 ==
LOC: YASAS 12:33 → Y3N 15:11
PROVIDERS: ADMIT Allergy & Immunology; ATTEND Allergy & Immunology
PROC: HZ2ZZZZ Detoxification Services for Substance Abuse Treatment (ICD-10-PCS; principal; 2020-01-19)
DX: F10.230 Alcohol dependence with withdrawal, uncomplicated (principal); F14.10 Cocaine abuse, uncomplicated; F20.9 Schizophrenia, unspecified; G40.909 Epilepsy, unspecified, not intractable, without status epilepticus; Z91.14 Patient's other noncompliance with medication regimen; Z59.0 Homelessness
CPT/HCPCS: 36415; 80053; 82947; 85027; 86780; 93005; 93010; U0003